=== PATIENT | female | born 1985 | race Caucasian/White ===

== ENCOUNTER 2017-05-07 13:43 | Inpatient (IN) | payer MEDICAID ==
[~2017-05-07] VITALS: Ht 160 cm; Wt 66.5 kg
--- NOTE | 2017-05-07 15:48 | ERD ---
ER Documentation Chief Complaint Chief Complaint vaginal bleeding x 2 weeks HPI This 31 yr old femal; reports vaginal bleeding x 12 days, denies , pt reports cramping , reports that menses usably last 4 days ROS All systems reviewed and are negative except as per history of present illness. Allergies Allergies: Coded Allergies: No Known Allergies (Verified Allergy, Mild, 09/12/10) PMhx/Soc Medical and Surgical Hx: pt denies Medical Hx, pt denies Surgical Hx History of Surgery: No Anesthesia Reaction: No Hx Neurological Disorder: No Hx Respiratory Disorders: No Hx Cardiac Disorders: No Hx Psychiatric Problems: No Hx Miscellaneous Medical Probl: No Hx Alcohol Use: No Hx Substance Use: No Hx Tobacco Use: No Smoking Status: Never smoker Physical Exam Vitals Vital Signs Date Time Temp Pulse Resp B/P Pulse Ox O2 Delivery O2 Flow Rate FiO2 05/07/17 14:14 98.1 79 19 127/82 100 Physical Exam Const: [] Head: Atraumatic Eyes: Normal Conjunctiva ENT: Normal External Ears, Nose and Mouth. Neck: Full range of motion..~ No meningismus. Resp: Clear to auscultation bilaterally Cardio: Regular rate and rhythm, no murmurs Abd: Soft, non tender, non distended. Normal bowel sounds Skin: No petechiae or rashes Back: No midline or flank tenderness Ext: No cyanosis, or edema Neur: Awake and alert Psych: Normal Mood and Affect Result Diagram: 05/07/17 9530 Results 24 hrs Laboratory Tests Test 05/07/17 16:06 05/07/17 18:20 Bedside Urine pH (LAB) 5.5 Bedside Urine Protein (LAB) Trace Bedside Urine Glucose (UA) Negative Bedside Urine Ketones (LAB) Negative Bedside Urine Blood 3+ Bedside Urine Nitrite (LAB) Negative Bedside Urine Leukocyte Esterase (L Trace White Blood Count 12.310^3/ul Red Blood Count 4.1110^6/ul Hemoglobin 7.8g/dl Hematocrit 26.6% Mean Corpuscular Volume 64.7fl Mean Corpuscular Hemoglobin 19.0pg Mean Corpuscular Hemoglobin Concent 29.3g/dl Red Cell Distribution Width 18.7% Platelet Count 27422^3/UL Mean Platelet Volume 10.2fl Neutrophils % 59.9% Lymphocytes % 30.1% Monocytes % 6.0% Eosinophils % 2.7% Basophils % 0.7% Nucleated Red Blood Cells % 0.0/100WBC Neutrophils # 7.310^3/ul Lymphocytes # 3.710^3/ul Monocytes # 0.710^3/ul Eosinophils # 0.310^3/ul Basophils # 0.110^3/ul Nucleated Red Blood Cells # 0.010^3/ul Current Medications Medications (Trade) Dose Ordered Sig/Gloria Route PRN Reason Start Time Stop Time Status Last Admin Dose Admin Acetaminophen (Tylenol Tab) 650 mg ONCE ONCE PO 05/07/17 16:00 05/07/17 16:01 DC 05/07/17 16:06 Procedures/MDM ROCEDURE: US Pelvis. CLINICAL INDICATION: Dysfunctional uterine bleeding TECHNIQUE: Transabdominal and transvaginal pelvic ultrasound are performed. COMPARISON: None. FINDINGS: The uterus is normal in echogenicity and anteverted in orientation. The uterus measures 9.1 x 4.7 x 6.3 cm. No focal fibroids are identified. A thickened heterogeneous endometrium is seen measuring 1.96 cm.. The cervix is normal in appearance. Both ovaries are identified. There are bilateral ovarian cysts/follicles. The dominant follicles within the right ovary measures 18 mm. Additionally, there is a left 8 mm paraovarian cyst. No solid or complex masses are seen. Normal Doppler flow is noted of both ovaries. The right ovary measures 3.8 x 1.6 x 2.8 cm, and the left ovary measures 2.3 x 1.0 x 1.8 cm There is no free fluid in the pelvis IMPRESSION: 1. Thickened heterogeneous endometrium. This should be reevaluated after 1 cycle 2. 8 mm left para ovarian simple cyst. 3. Otherwise unremarkable pelvic ultrasound Electronically viewed and signed by .Rudy Friedman MD, on 05/07/2017 17:54 TON BROOKS May 07, 2017 15:48
[2017-05-07] MEDS ORDERED: ACETAMINOPHEN 325 MG TAB PO ONE (16:00)
[2017-05-07 16:05] LABS: URINE BLOOD (Dip) POC 3+ (NEGATIVE)
--- NOTE | 2017-05-07 17:55 | RADRPT ---
PROCEDURE: US Pelvis. CLINICAL INDICATION: Dysfunctional uterine bleeding TECHNIQUE: Transabdominal and transvaginal pelvic ultrasound are performed. COMPARISON: None. FINDINGS: The uterus is normal in echogenicity and anteverted in orientation. The uterus measures 9.1 x 4.7 x 6.3 cm. No focal fibroids are identified. A thickened heterogeneous endometrium is seen measuring 1.96 cm.. The cervix is normal in appearance. Both ovaries are identified. There are bilateral ovarian cysts/follicles. The dominant follicles wi thin the right ovary measures 18 mm. Additionally, there is a left 8 mm paraovarian cyst. No solid o r complex masses are seen. Normal Doppler flow is noted of both ovaries. The right ovary measures 3.8 x 1.6 x 2.8 cm, and the left ovary measures 2.3 x 1.0 x 1.8 cm There is no free fluid in the pelvis IMPRESSION: 1. Thickened heterogeneous endometrium. This should be reevaluated after 1 cycle 2. 8 mm left para ovarian simple cyst. 3. Otherwise unremarkable pelvic ultrasound RPTAT: .Rudy Friedman MD, Date Time Electronically viewed and signed by .Rudy Friedman MD, on 05/07/2017 17:54 .W/
[2017-05-07 18:41] LABS: BASOPHIL # 0.1 10^3/ul (0.0-0.1); BASOPHILS % 0.7 % (0.0-2.0); EOSINOPHILS # 0.3 10^3/ul (0.0-0.5); EOSINOPHILS % 2.7 % (0.0-7.0); HEMATOCRIT 26.6 % (37.0-47.0); HEMOGLOBIN 7.8 g/dl (12.0-16.0); LYMPHOCYTES # 3.7 10^3/ul (0.8-2.9); LYMPHOCYTES % 30.1 % (15.0-51.0); MEAN CORPUSCULAR HGB CONC 29.3 g/dl (32.0-37.0); MEAN CORPUSCULAR VOLUME 64.7 fl (82.0-101.0); MEAN PLATELET VOLUME 10.2 fl (7.4-10.4); MONOCYTE # 0.7 10^3/ul (0.3-0.9); NEUTROPHIL # 7.3 10^3/ul (1.6-7.5); NEUTROPHILS % 59.9 % (39.0-77.0); PLATELET COUNT 301 10^3/UL (140-415); RED BLOOD COUNT 4.11 10^6/ul (4.20-5.40); RED CELL DISTRIBUTION WIDTH 18.7 % (11.5-14.5); WHITE BLOOD COUNT 12.3 10^3/ul (4.8-10.8)
[2017-05-07] MEDS ORDERED: SOD CHLORIDE 0.9% 500 ML IV STA (19:49)
[2017-05-07 20:06] LABS: CALCIUM 8.9 mg/dl (8.4-10.2); CREATININE 0.6 mg/dl (0.44-1.00); POTASSIUM 3.6 mmol/L (3.5-5.1)
--- NOTE | 2017-05-07 20:32 | ERD ---
ER Documentation Chief Complaint Chief Complaint vaginal bleeding x 2 weeks HPI 31-year-old female presents for vaginal bleeding for the last 12 days. She is lightheaded, dizzy, and is having trouble completing her thoughts. Her periods usually last 4 days and she has not bled this heavily before. She also feels weaker than normal. Denies chest pain, shortness of breath, fever chills. Had mild crampy lower abdominal pain as she usually does with her periods but has not had any severe abdominal pain, nausea or vomiting. ROS All systems reviewed and are negative except as per history of present illness. Allergies Allergies: Coded Allergies: No Known Allergies (Verified Allergy, Mild, 09/12/10) PMhx/Soc Medical and Surgical Hx: pt denies Medical Hx, pt denies Surgical Hx History of Surgery: No Anesthesia Reaction: No Hx Neurological Disorder: No Hx Respiratory Disorders: No Hx Cardiac Disorders: No Hx Psychiatric Problems: No Hx Miscellaneous Medical Probl: No Hx Alcohol Use: No Hx Substance Use: No Hx Tobacco Use: No Smoking Status: Never smoker Physical Exam Vitals Vital Signs Date Time Temp Pulse Resp B/P Pulse Ox O2 Delivery O2 Flow Rate FiO2 05/07/17 14:14 98.1 79 19 127/82 100 Physical Exam Const: [] To moderate distress, appears uncomfortable, especially when standing or walking. Head: Atraumatic Eyes: Normal Conjunctiva ENT: Normal External Ears, Nose and Mouth. Neck: Full range of motion..~ No meningismus. Resp: Clear to auscultation bilaterally Cardio: Regular rate and rhythm, no murmurs Abd: Soft, non tender, non distended. Normal bowel sounds Skin: No petechiae or rashes Back: No midline or flank tenderness Ext: No cyanosis, or edema Neur: Awake and alert 3, no focal deficits Psych: Normal Mood and Affect Result Diagram: 05/07/17181905/07/171819 Results 24 hrs Laboratory Tests Test 05/07/17 16:06 05/07/17 18:20 Bedside Urine pH (LAB) 5.5 Bedside Urine Protein (LAB) Trace Bedside Urine Glucose (UA) Negative Bedside Urine Ketones (LAB) Negative Bedside Urine Blood 3+ Bedside Urine Nitrite (LAB) Negative Bedside Urine Leukocyte Esterase (L Trace White Blood Count 12.310^3/ul Red Blood Count 4.1110^6/ul Hemoglobin 7.8g/dl Hematocrit 26.6% Mean Corpuscular Volume 64.7fl Mean Corpuscular Hemoglobin 19.0pg Mean Corpuscular Hemoglobin Concent 29.3g/dl Red Cell Distribution Width 18.7% Platelet Count 85267^3/UL Mean Platelet Volume 10.2fl Neutrophils % 59.9% Lymphocytes % 30.1% Monocytes % 6.0% Eosinophils % 2.7% Basophils % 0.7% Nucleated Red Blood Cells % 0.0/100WBC Neutrophils # 7.310^3/ul Lymphocytes # 3.710^3/ul Monocytes # 0.710^3/ul Eosinophils # 0.310^3/ul Basophils # 0.110^3/ul Nucleated Red Blood Cells # 0.010^3/ul Sodium Level 140mmol/L Potassium Level 3.6mmol/L Chloride Level 104mmol/L Carbon Dioxide Level 27mmol/L Anion Gap 13 Blood Urea Nitrogen 13mg/dl Creatinine 0.60mg/dl Glucose Level 95mg/dl Calcium Level 8.9mg/dl Current Medications Medications (Trade) Dose Ordered Sig/Gloria Route PRN Reason Start Time Stop Time Status Last Admin Dose Admin Acetaminophen 650 mg 650 mg ONCE ONCE PO 05/07/17 16:00 05/07/17 16:01 DC 05/07/17 16:06 Sodium Chloride (NS) 500 ml @ 500 mls/hr Q1H STAT IV 05/07/17 19:49 05/07/17 20:48 05/07/17 20:01 Procedures/MDM Dysfunctional uterine bleeding causing symptomatic anemia. I reviewed this patient's EMR and she is never had a hemoglobin this low even after she delivered a child. Is significantly microcytic and fits with the etiology of acute blood loss anemia. She does not have any fibroids in her uterus or any clear indication for her bleeding. Mild leukocytosis without signs of specific infection. Does have trace leukocyte esterase but a significant amount of blood in her catch specimen. I have ordered a urine culture. I spoke with Dr. Menon, medical administrative on-call who will see the patient on consult. Prefers that she be admitted to the hospitalist. Given normal saline 500 mg will be transfused 2 units of packed red blood cells. She has been closely monitored. She is being admitted to Dr. Boyd. Pelvic ultrasound interpretation: Thickened heterogenous endometrium with 8 mm right ovarian cyst. No free fluid, no fibroids. Departure Diagnosis: Primary Impression: Excessive vaginal bleeding Additional Impressions: Symptomatic anemia Anemia due to blood loss, acute Leukocytosis, unspecified Condition: Serious DELL FUNG DO May 07, 2017 20:32
[2017-05-07 20:39] LABS: ADD UMIC YES; UR ASCORBIC ACID NEGATIVE (NEGATIVE); UR BILIRUBIN (Dip) NEGATIVE (NEGATIVE); UR BLOOD (Dip) 3+ mg/dL (NEGATIVE); UR CLARITY CLEAR (CLEAR); UR COLOR YELLOW (YELLOW); UR GLUCOSE (Dip) NEGATIVE (NEGATIVE); UR KETONES (Dip) NEGATIVE (NEGATIVE); UR LEUKOCYTE ESTERASE (Dip) NEGATIVE Leu/ul (NEGATIVE); UR NITRITE (Dip) NEGATIVE (NEGATIVE); UR RBC > 182 /HPF (0-5); UR SPECIFIC GRAVITY (Dip) 1.011 (1.003-1.030); UR TOTAL PROTEIN (Dip) NEGATIVE (NEGATIVE); UR UROBILINOGEN (Dip) NEGATIVE (NEGATIVE)
[2017-05-07] MEDS ORDERED: ONDANSETRON 4 MG INJ IV PRN (21:00)
[2017-05-07] MEDS ORDERED: ACETAMINOPHEN 325 MG TAB PO PRN (21:00)
[2017-05-07 23:19] VITALS: TEMP 98.1
[2017-05-07 23:55] VITALS: BP 113/81; PULSE 67; RESP 18; Ht 160 cm; Wt 66.5 kg
[2017-05-08] MEDS ORDERED: IBUPROFEN 800 MG TAB PO PRN (02:30)
[2017-05-08] MEDS ORDERED: SOD CHLORIDE 0.9% 1,000 ML IV SCH (04:30)
[2017-05-08] MEDS ORDERED: CEFTRIAXONE 1 GM/50 ML (PMX) 50 ML IVPB SCH (04:30)
--- NOTE | 2017-05-08 05:27 | HP ---
DATE OF ADMISSION: 05/07/2017 CHIEF COMPLAINT: Vaginal bleeding and pelvic pain. HISTORY OF PRESENT ILLNESS: A 31-year-old female 2, para 2, last menstrual period , presented to the emergency department with complaint of prolonged menses and pelvic pain. PAST MEDICAL HISTORY: Unremarkable. PAST SURGICAL HISTORY: Cholecystectomy. ALLERGIES: NO KNOWN ALLERGIES. FAMILY HISTORY: Diabetes. PHYSICAL EXAMINATION: VITAL SIGNS: Patient is afebrile. Vital signs stable. HEAD, NECK AND CHEST: Within normal limits. ABDOMEN: Soft, nontender, nondistended. PELVIC: There is cervical motion tenderness. EXTREMITIES: Within normal limits. NEUROLOGIC: Within normal limits. LABORATORY: Workup in the emergency department included a test which was negative. CBC: WBC 12.3, hemoglobin 7.8, hematocrit 26.6, platelets . Pelvic ultrasound reveals uterus to be normal size, thickened heterogeneous endometrium, 8 mm left paraovarian simple cyst. While in the emergency department, the patient was started on red blood cell transfusion by emergency department physician. IMPRESSION: Rule out pelvic inflammatory disease, anemia associated with acute blood loss, abnormal uterine bleeding. PLAN: Admit. Gonorrhea and chlamydia culture and urine culture. Rocephin 1 gram IV q. 24 hours, d oxycycline 100 mg p.o. q. 12 hours. Dictated By: JANE AMADOR/TJ Conf#: [id number] DID#: [id number]
[2017-05-08 07:38] VITALS: BP 97/53; RESP 18
[2017-05-08] MEDS ORDERED: DOXYCYCLINE 100 MG TAB PO SCH (09:00)
[2017-05-08 09:23] LABS: BASOPHIL # 0.1 10^3/ul (0.0-0.1); BASOPHILS % 0.7 % (0.0-2.0); EOSINOPHILS # 0.2 10^3/ul (0.0-0.5); EOSINOPHILS % 2.8 % (0.0-7.0); HEMATOCRIT 31.9 % (37.0-47.0); LYMPHOCYTES # 2.3 10^3/ul (0.8-2.9); LYMPHOCYTES % 28.7 % (15.0-51.0); MEAN CORPUSCULAR HEMOGLOBIN 21.1 pg (29.0-33.0); MEAN CORPUSCULAR HGB CONC 31.3 g/dl (32.0-37.0); MEAN CORPUSCULAR VOLUME 67.2 fl (82.0-101.0); MEAN PLATELET VOLUME 9.9 fl (7.4-10.4); MONOCYTE # 0.5 10^3/ul (0.3-0.9); MONOCYTES % 6.3 % (0.0-11.0); NEUTROPHIL # 4.9 10^3/ul (1.6-7.5); NEUTROPHILS % 60.9 % (39.0-77.0); PLATELET COUNT 265 10^3/UL (140-415); RED BLOOD COUNT 4.75 10^6/ul (4.20-5.40); RED CELL DISTRIBUTION WIDTH 19.5 % (11.5-14.5); WHITE BLOOD COUNT 8.1 10^3/ul (4.8-10.8)
== END 2017-05-08 17:50 | disposition home or self-care (01) | DRG 812 ==
LOC: FTE 13:43 → MS1 20:34
PROVIDERS: ADMIT Obstetrics & Gynecology; ATTEND Obstetrics & Gynecology
PROC: 30233N1 Transfusion of Nonautologous Red Blood Cells into Peripheral Vein, Percutaneous Approach (ICD-10-PCS; principal; 2017-05-07)
DX: D62 Acute posthemorrhagic anemia (principal); N93.9 Abnormal uterine and vaginal bleeding, unspecified; N83.202 Unspecified ovarian cyst, left side
CPT/HCPCS: 36415; 36430; 76830; 76856; 80048; 81001; 81003; 84702; 84703; 85025; 86644; 86850; 86900; 86901; 86920; 86945; 87086; 87591; J0696; J7030; J7040; P9016